=== PATIENT | female | born 1985 | race African-American/Black ===

== ENCOUNTER 2018-03-07 14:45 | Inpatient (IN) | payer MEDICAID ==
[~2018-03-07] VITALS: Ht 157.5 cm; Wt 87.5 kg
[2018-03-07] MEDS ORDERED: SODIUM CHLORIDE 0.9% 1,000 ML IV ONE (17:48)
[2018-03-07] MEDS ORDERED: DIPHENHYDRAMINE 50MG/ML VIAL IV ONE (18:00)
[2018-03-07] MEDS ORDERED: METOCLOPRAMIDE HCL 10MG/2ML VIAL IV ONE (18:00)
[2018-03-07 18:39] LABS: BASOPHILS % 0.1 % (0.0-2.0); EOSINOPHILS % 1.2 % (0.0-5.0); HEMATOCRIT. 37.1 % (36.0-48.0); HEMOGLOBIN. 12.5 g/dL (12.0-16.0); LYMPHOCYTES % 35.1 % (20.0-50.0); MEAN CORPUSCULAR HEMOGLOBIN 26.7 pg (28.0-32.0); MEAN CORPUSCULAR VOLUME 79.6 fL (81.0-99.0); MEAN PLATELET VOLUME 8.3 fl (7.4-10.4); NEUTROPHILS % 58.6 % (40.0-76.0); PLATELET 546 x1000/uL (130-400); RED BLOOD CELL COUNT 4.66 mill/uL (4.2-5.4); RED CELL DISTRIBUTION WIDTH 14.6 % (11.6-14.6)
[2018-03-07 18:46] LABS: CHLORIDE 101 mEq/L (98-107)
[2018-03-07 19:01] LABS: HCG SCREEN NEGATIVE
[2018-03-07 19:12] LABS: INR 1.1; PARTIAL THROMBOPLASTIN TIME 33.4 sec (23.4-31.0); PROTHROMBIN TIME 11.3 sec (9.1-11.1)
[2018-03-07] MEDS ORDERED: ONDANSETRON HCL 4MG/2ML INJ IV STA (21:55)
[2018-03-07] MEDS ORDERED: MORPHINE SULFATE 4 MG/ML CPJ (NOT FOR IM USE) IV STA (21:55)
[2018-03-07] MEDS ORDERED: ASPIRIN 325MG EC TABLET PO ONE (22:45)
[2018-03-07] MEDS ORDERED: IOHEXOL-350 100 ML BOTTLE ONE (22:54)
[2018-03-08] MEDS ORDERED: ONDANSETRON HCL 4MG/2ML INJ IV PRN (17:13)
[2018-03-08] MEDS ORDERED: MORPHINE SULFATE 4 MG/ML CPJ (NOT FOR IM USE) IV PRN (17:15)
[2018-03-08] MEDS: DIPHENHYDRAMINE 50MG/ML VIAL IV PRN ×2 (17:20→20:48)
[2018-03-08] MEDS: IBUPROFEN 600MG TABLET PO PRN (17:20)
[2018-03-08] MEDS: HYDROCODONE/ACETAMINOPHEN 5/325MG TABLET PO PRN (20:47)
[2018-03-08 21:22] LABS: CLARITY URINE CLEAR (CLEAR); COLOR URINE YELLOW (YELLOW); KETONES URINE NEGATIVE (NEGATIVE); LEUKOCYTE ESTERASE URINE 1+ (NEGATIVE); NITRITE URINE NEGATIVE (NEGATIVE); OCCULT BLOOD URINE NEGATIVE (NEGATIVE); PH URINE 7.5 (4.5-8.0); PROTEIN URINE NEGATIVE (NEGATIVE); SPECIFIC GRAVITY URINE 1.002 (1.005-1.030); UROBILINOGEN URINE 0.2 E.U./dL (0.2-1.0)
[2018-03-08] MEDS ORDERED: PREDNISONE 20MG TABLET PO NR (21:22)
[2018-03-08 21:34] LABS: *AMPHETAMINES SCREEN URINE NEGATIVE (NEGATIVE); *BARBITURATES SCREEN URINE NEGATIVE (NEGATIVE); *BENZODIAZEPINES SCREEN URINE NEGATIVE (NEGATIVE); *COCAINE SCREEN URINE NEGATIVE (NEGATIVE); CANNABINOID URINE SCREEN NEGATIVE (NEGATIVE); METHADONE URINE SCREEN NEGATIVE (NEGATIVE); OPIATES URINE SCREEN NEGATIVE (NEGATIVE); PHENCYCLIDINE URINE SCREEN NEGATIVE (NEGATIVE)
[2018-03-08 21:50] VITALS: BP 108/69
[2018-03-08 21:52] VITALS: BP 108/69
[2018-03-08] MEDS ORDERED: IBUP-2029 PO (21:58)
[2018-03-08] MEDS: VALACYCLOVIR HCL 500MG TABLET PO SCH (22:17)
[2018-03-08] MEDS ORDERED: SUMATRIPTAN SUCCINATE 6MG/0.5ML VIAL SUBCUT NR (22:30)
[2018-03-09] VITALS: BP 106/59
[2018-03-09 04:00] VITALS: BP 103/66
[2018-03-09 07:52] LABS: BASOPHILS % 0.1 % (0.0-2.0); HEMATOCRIT. 37.7 % (36.0-48.0); HEMOGLOBIN. 12.8 g/dL (12.0-16.0); LYMPHOCYTES % 9.8 % (20.0-50.0); MEAN CORPUSCULAR VOLUME 79.6 fL (81.0-99.0); MEAN PLATELET VOLUME 8.4 fl (7.4-10.4); MONOCYTES % 0.9 % (2.0-8.0); NEUTROPHILS % 89.2 % (40.0-76.0); PLATELET 512 x1000/uL (130-400); RED BLOOD CELL COUNT 4.74 mill/uL (4.2-5.4); RED CELL DISTRIBUTION WIDTH 14.6 % (11.6-14.6)
[2018-03-09] MEDS: VALACYCLOVIR HCL 500MG TABLET PO SCH ×2 (08:02→21:39)
[2018-03-09 08:14] VITALS: BP 99/57
[2018-03-09 12:00] VITALS: BP 101/60
[2018-03-09 15:20] LABS: CHLORIDE 102 mEq/L (98-107)
[2018-03-09 16:00] VITALS: BP 105/62
[2018-03-09] MEDS ORDERED: PREDNISONE 20MG TABLET PO NR (17:45)
[2018-03-09 20:00] VITALS: BP 112/71
[2018-03-09] MEDS: IBUPROFEN 600MG TABLET PO PRN (21:47)
[2018-03-10] VITALS: BP 120/84
[2018-03-10] MEDS: DIPHENHYDRAMINE 50MG/ML VIAL IV PRN (02:12)
[2018-03-10 04:07] VITALS: BP 118/75
[2018-03-10] MEDS: VALACYCLOVIR HCL 500MG TABLET PO SCH (08:45)
[2018-03-10 12:02] VITALS: BP 105/52
[2018-03-10] MEDS: HYDROCODONE/ACETAMINOPHEN 5/325MG TABLET PO PRN (15:33)
[2018-03-10 16:35] VITALS: BP 112/75
[2018-03-10 17:21] VITALS: BP 112/75
[2018-03-10] MEDS ORDERED: MORPHINE SULFATE 10MG/5ML ORAL SOLN UDC PO PRN (18:45)
== END 2018-03-10 19:40 | disposition home or self-care (01) | DRG 54 ==
LOC: ER 14:45 → ENRESERV 03-08 19:44 → 6WST 03-08 21:20
PROVIDERS: ADMIT Internal Medicine; ATTEND Internal Medicine
DX: R51 Headache (principal); E66.01 Morbid (severe) obesity due to excess calories; R20.2 Paresthesia of skin; R20.0 Anesthesia of skin; Z68.35 Body mass index [BMI] 35.0-35.9, adult; F45.9 Somatoform disorder, unspecified
CPT/HCPCS: 36415; 70496; 70498; 70551; 71045; 72141; 72148; 80048; 80061; 80305; 81025; 83036; 83880; 84443; 84484; 84703; 86850; 86900; 93005; 96374; 96375; 96376; 99284; 99285; J1200; J2270; J2405; J2765; J3030; J7030; J7512; Q9967